=== PATIENT | male | born 1995 | race Caucasian/White ===

== ENCOUNTER 2019-04-25 16:16 | Emergency (ER) | payer OTHER ==
[~2019-04-25] VITALS: Ht 172.7 cm; Wt 74.8 kg
[2019-04-25] MEDS ORDERED: CENTANY30 GM TOP (16:46)
[2019-04-25 17:19] VITALS: BP 145/80
== END 2019-04-25 17:20 | disposition home or self-care (01) ==
LOC: M.ERS 16:16
DX: S51.811A Laceration without foreign body of right forearm, initial encounter (principal); W27.8XXA Contact with other nonpowered hand tool, initial encounter; Y92.89 Other specified places as the place of occurrence of the external cause; Y93.89 Activity, other specified; Y99.8 Other external cause status